=== PATIENT | female | born 1990 | race African-American/Black ===

== ENCOUNTER 2019-10-29 22:03 | Emergency (ER) | payer OTHER ==
[~2019-10-29] VITALS: Ht 152.4 cm; Wt 61.2 kg
[~2019-10-29 22:03] MED LIST: AMOXICILLIN 50500 M1 PO; BACTRIM DS TAB1 EACH PO; DEPO-PROVE150 MG/11 IM; DIFLUCAN150 MG PO; IBUPROFEN 600600 M1 PO; NORCO 5-325 TA1 EACH PO
[2019-10-29 22:29] VITALS: BP 112/57
== END 2019-10-29 23:14 | disposition left against medical advice (07) ==
LOC: ER 22:03
DX: M25.572 Pain in left ankle and joints of left foot (principal); Z53.21 Procedure and treatment not carried out due to patient leaving prior to being seen by health care provider; W10.8XXA Fall (on) (from) other stairs and steps, initial encounter; Y93.89 Activity, other specified; Y92.89 Other specified places as the place of occurrence of the external cause; Y99.9 Unspecified external cause status